=== PATIENT | female | born 1930 | race Caucasian/White ===

== ENCOUNTER 2016-11-04 18:04 | Emergency (ER) | payer MEDICARE, BC ==
[~2016-11-04 18:04] MED LIST: ACYCLOVIR200 MG PO; AMLODIPINE BES1 TAB PO; AMLODIPINE BESYL5 MG PO; ARTIFICIAL TEAR15 M1 OPH; ASPIRIN81 M1 PO; ATORVASTATIN CA10 M1 PO; CALCIUM CARBONA1 TA8 PO; COLACE100 MG PO; COLESTID1 GM PO; COREG25 MG PO; COUMADIN2 MG PO; COZAAR50 M1 PO; Coumadin2 MG PO; DEMADEX20 M1 PO; DOXYCYCLINE MO100 M1 PO; FERROUS SULFAT324 M1 PO; HUMALOG100 U/ML SC; IMDUR SA30 MG PO; JANUVIA25 MG PO; LIDODERM 5% PATC1 EA PO; LIDODERM 5% PATC1 EA T; MASOPHEN325 MG PO; MELATONIN3 MG PO; MOTION RELIEF25 M2 PO; NITRO-BID21 TP; NITRO-DUR1 EAC1 TD; OCUVITE1 TA1 PO; POTASSIUM CHLO10 ME5 PO; Synthroid,Lev100 MCG PO; TRAMADOL HCL50 MG PO; VITAMIN C500 M1 PO; VITAMIN D50000 I3 PO; WARFARIN SOD5 MG PO; WARFARIN SODIUM2 MG PO; XARE20MG PO; ZANTAC 150150 MG PO; ZOFRAN ODT4 MG SL
[2016-11-04 18:24] LABS: BASO % 0.2 % (0.0-1.0); HEMATOCRIT 32.7 % (37.0-47.0); HEMOGLOBIN 10.2 g/dl (12.0-16.0); LYMPH # 0.6 10*3/uL (1.3-4.4); LYMPH % 15.4 % (27.0-41.0); MEAN CELL VOLUME 92.9 fl (81.0-99.0); MEAN CORPUSCULAR HGB CONC 31.2 g/dl (33.0-37.0); MEAN PLATELET VOLUME 9.3 fl (9.6-12.3); MONO # 0.6 10*3/uL (0.1-1.0); MONO % 14.9 % (3.0-9.0); NEUT # 2.8 10*3/uL (2.3-7.9); NEUT % 68.3 % (47.0-73.0); PLATELET COUNT AUTOMATED 133 10*3/uL (130-400); RED BLOOD COUNT 3.52 10*6/uL (4.10-5.10); RED CELL DISTRI WIDTH 14.8 % (0-14.5); WHITE BLOOD COUNT 4.2 10*3/uL (4.8-10.8)
[2016-11-04] MEDS ORDERED: FOSAMAX70 M1 PO (18:27)
[2016-11-04] MEDS ORDERED: LOSARTAN POTASS50 M1 PO (18:28)
[2016-11-04] MEDS ORDERED: MILK OF MAGNESI1 TAB PO (18:29)
[2016-11-04 18:36] LABS: INTERNATIONAL NORM RATIO 1.8 (2.0-3.5); PROTHROMBIN TIME 19.9 SECONDS (9.0-12.4)
[2016-11-04 18:42] LABS: ALBUMIN 3.5 gm/dl (3.1-4.5); BILIRUBIN, TOTAL 0.4 mg/dl (0.2-1.0); POTASSIUM 4.5 mmol/L (3.5-5.1); TOTAL PROTEIN 7.5 gm/dL (6.4-8.2); TROPONIN I 0.016 ng/ml (<0.5)
[2016-11-04 19:26] LABS: BILIRUBIN NEGATIVE (NEGATIVE); BLOOD NEGATIVE (NEGATIVE); CLARITY SL CLOUDY (CLEAR); COLOR YELLOW (YELLOW); GLUCOSE TRACE (NEGATIVE); KETONE NEGATIVE (NEGATIVE); LEUKO ESTERASE 3+ (NEGATIVE); NITRITE NEGATIVE (NEGATIVE); PROTEIN NEGATIVE (NEGATIVE); SPECIFIC GRAVITY <= 1.005 (1.005-1.030); UROBILINOGEN 0.2 E.U./dl (0.2-1.0)
[2016-11-04 19:34] LABS: WBC 41-50 wbc/hpf (0-5)
[2016-11-04 19:35] LABS: BACTERIA TRACE; URINE REFLEX COMMENT YES (NO)
[2016-11-04] MEDS ORDERED: MACROBID100 M1 PO (19:44)
[2016-12-06] MEDS ORDERED: ACETAMINOPHEN325 M3 PO (15:40)
[2016-12-06] MEDS ORDERED: ACYCLOVIR200 MG PO (15:40)
[2016-12-06] MEDS ORDERED: NORVASC2.5 MG PO (15:41)
[2016-12-06] MEDS ORDERED: LIPITOR10 MG PO (15:42)
[2016-12-06] MEDS ORDERED: VITAMIN B121000 MC1 PO (15:43)
[2016-12-06] MEDS ORDERED: BIOFREEZE118 ML TP (15:44)
[2016-12-06] MEDS ORDERED: CALCIUM CARBONA1 TA8 PO (15:44)
[2016-12-06] MEDS ORDERED: COREG25 MG PO (15:45)
[2016-12-06] MEDS ORDERED: COLACE100 MG PO (15:45)
[2016-12-06] MEDS ORDERED: COLESTID1 GM PO (15:45)
[2016-12-06] MEDS ORDERED: VITAMIN D50000 I3 PO (15:46)
[2016-12-06] MEDS ORDERED: Coumadin2 MG PO (15:46)
[2016-12-06] MEDS ORDERED: FOSAMAX70 M1 PO (15:47)
[2016-12-06] MEDS ORDERED: HUMALOG100 U/ML SC (15:47)
[2016-12-06] MEDS ORDERED: IMDUR SA30 MG PO (15:48)
[2016-12-06] MEDS ORDERED: LANTUS100 U/ML SC (15:48)
[2016-12-06] MEDS ORDERED: COZAAR50 M1 PO (15:49)
[2016-12-06] MEDS ORDERED: LIDOCARE1 EACH TP (15:49)
[2016-12-06] MEDS ORDERED: MILK OF MA400 MG/5 M PO (15:56)
[2016-12-06] MEDS ORDERED: MELATONIN3 MG PO (15:56)
[2016-12-06] MEDS ORDERED: OCUVITE1 TA1 PO (15:57)
[2016-12-06] MEDS ORDERED: MINITRAN1 EACH TD (15:57)
[2016-12-06] MEDS ORDERED: KLOR-CON M1010 ME1 PO (15:57)
[2016-12-06] MEDS ORDERED: Synthroid,Lev100 MCG PO (15:58)
[2016-12-06] MEDS ORDERED: PREPARATION H 81 SUP R (15:58)
[2016-12-06] MEDS ORDERED: TORSEMIDE20 MG PO (15:59)
[2016-12-06] MEDS ORDERED: ZANTAC 150150 MG PO (15:59)
[2016-12-06] MEDS ORDERED: ULTRAM50 MG PO (15:59)
[2016-12-08] MEDS ORDERED: Zofran4 MG PO (15:21)
== END 2016-11-04 19:47 | disposition home or self-care (01) ==
LOC: ED 18:04
PROVIDERS: Nurse Practitioner Family
DX: R73.9 Hyperglycemia, unspecified (principal); N18.9 Chronic kidney disease, unspecified; N39.0 Urinary tract infection, site not specified; R03.0 Elevated blood-pressure reading, without diagnosis of hypertension; I99.8 Other disorder of circulatory system; E11.9 Type 2 diabetes mellitus without complications; M19.90 Unspecified osteoarthritis, unspecified site; E03.9 Hypothyroidism, unspecified; I48.91 Unspecified atrial fibrillation; Z88.0 Allergy status to penicillin; Z88.1 Allergy status to other antibiotic agents; Z79.82 Long term (current) use of aspirin; Z79.899 Other long term (current) drug therapy; Z85.71 Personal history of Hodgkin lymphoma; Z79.01 Long term (current) use of anticoagulants; Z79.4 Long term (current) use of insulin

== ENCOUNTER 2016-11-08 15:31 | Inpatient (IN) | payer MEDICARE, BC ==
[~2016-11-08] VITALS: Ht 152.4 cm; Wt 56.4 kg
--- NOTE | ~2016-11-08 | EKG ---
[place], [place] ELECTROCARDIOGRAM REPORT NAME: ANTONIO ESPINAL UNIT #: [id number] ROOM: [facility] DOCTOR: BLAYNE RIVERA,LAVERN BIRTHDATE: [birth year] DOS: 11/08/2016 TIME: 1549 hours. Underlying rhythm is atrial fibrillation with ventricular pacing at 60 beats per minute. No previous tracing is available for comparison. LAVERN CISNEROS MD CM:EKGRPT:ELECTROCARDIOGRAM REPORT 1857 LAVERN CISNEROS MD
--- NOTE | ~2016-11-08 | CON ---
[place], [place] REPORT OF CONSULTATION [id number] UNIT #: [id number] ROOM: 528 DOCTOR: AGATHA PINTO MD BIRTHDATE: [birth year] DOS: GASTROENDOSCOPIC REPORT HISTORY OF PRESENT ILLNESS: The patient is an 86-year-old was presented with multiple medical problems, among which has been guaiac positivity, prolonged INR secondary to Coumadin. CBC: H and H of 10 and 32. Comprehensive metabolic panel: BUN and creatinine elevation of 61 and 1.5. Electrolyte balance, liver function test normal. She has had colonoscopy, EGD several months ago done. She has had a UTI. Urine culture heavy gram-negative bacilli. Her INR was corrected to 2.7. CBC remains stable. PAST MEDICAL HISTORY: Associated with past cardiac dysrhythmia, anemia, diabetes mellitus, hypertension, congestive heart failure, hypothyroidism, hyperlipidemia, cardiac dysrhythmia. PAST SURGICAL HISTORY: Hysterectomy, pacemaker, appendectomy, cholecystectomy, right breast lumpectomy. SOCIAL HISTORY: Passive smoker. Nonalcohol consumer. FAMILY HISTORY: Noncontributory. MEDICATIONS: List was reviewed. She was on Coumadin. Coumadin on hold. She is on Protonix at the present time. REVIEW OF SYSTEMS: HEENT: Denies double vision or blurred vision. RESPIRATORY: Denies shortness of breath. CARDIOVASCULAR: Denies acute chest pain. DIGESTIVE SYSTEM: No hematemesis, no hematochezia. PHYSICAL EXAMINATION: VITAL SIGNS: Comfortable patient at the present time. HEENT: Head: Normocephalic, nontraumatic. Mouth and buccal mucosa benign. NECK: Supple, no thyromegaly. CHEST: Symmetric anatomy. No wheeze, no rhonchi. HEART: Normal sinus rhythm, no gallop, no murmur. ABDOMEN: Soft. No hepato-organomegaly. Bowel sounds present. EXTREMITIES: No cyanosis, no pedal edema. NEUROLOGIC: Alert, oriented to time, place and person. Family present in the room. IMPRESSION: Anemia, urinary tract infection, guaiac positivity, prolonged INR that has been reversed. PLAN AND DISCUSSION: H and H tomorrow morning, regular diet. The patient has refused any further workup. OTHER ADJUNCTIVE DIAGNOSIS: As outlined above in the past medical and surgical [place], [place] REPORT OF CONSULTATION NAME: ANTONIO ESPINAL UNIT #: [id number] ROOM: 528 DOCTOR: AGATHA PINTO MD BIRTHDATE: [birth year] history. AGATHA PINTO MD CM:CONSTR:REPORT OF CONSULTATION 1625 11/11/16 0208 interface
[2016-11-08 15:31] VITALS: BP 158/58
[~2016-11-08 15:31] MED LIST changes: +FOSAMAX70 M1 PO; +LOSARTAN POTASS50 M1 PO; +MACROBID100 M1 PO; +MILK OF MAGNESI1 TAB PO
[2016-11-08] MEDS ORDERED: B-12 COMPL1000 MCG/1 IM (15:59)
[2016-11-08 16:00] VITALS: BP 170/61
[2016-11-08] MEDS ORDERED: BIOFREEZE118 ML TP (16:06)
[2016-11-08] MEDS ORDERED: ISOSORBIDE30 MG PO (16:08)
[2016-11-08] MEDS ORDERED: LANTUS100 U/ML SC (16:11)
[2016-11-08 16:13] LABS: EOS # 0.1 10*3/uL (0.0-0.4); EOS % 2.2 % (1.0-4.0); HEMATOCRIT 32.6 % (37.0-47.0); LYMPH # 0.4 10*3/uL (1.3-4.4); LYMPH % 11.5 % (27.0-41.0); MEAN CELL VOLUME 93.4 fl (81.0-99.0); MEAN CORPUSCULAR HGB 28.7 pg (27.0-31.0); MEAN CORPUSCULAR HGB CONC 30.7 g/dl (33.0-37.0); MEAN PLATELET VOLUME 9.6 fl (9.6-12.3); MONO # 0.3 10*3/uL (0.1-1.0); MONO % 9.5 % (3.0-9.0); NEUT # 2.7 10*3/uL (2.3-7.9); NEUT % 76.5 % (47.0-73.0); PLATELET COUNT AUTOMATED 137 10*3/uL (130-400); RED BLOOD COUNT 3.49 10*6/uL (4.10-5.10); WHITE BLOOD COUNT 3.6 10*3/uL (4.8-10.8)
[2016-11-08] MEDS ORDERED: PREPARATION H 01 OIN T (16:14)
[2016-11-08] MEDS ORDERED: CEFTRIAXON1 GM/50 ML IM (16:15)
[2016-11-08 16:21] LABS: INTERNATIONAL NORM RATIO 4.2 (2.0-3.5)
[2016-11-08 16:28] LABS: ALBUMIN 3.3 gm/dl (3.1-4.5); BILIRUBIN, TOTAL 0.4 mg/dl (0.2-1.0); POTASSIUM 5.1 mmol/L (3.5-5.1); TOTAL PROTEIN 7.2 gm/dL (6.4-8.2); TROPONIN I 0.023 ng/ml (<0.5)
[2016-11-08 17:00] VITALS: BP 163/61
[2016-11-08 17:55] VITALS: BP 155/61
[2016-11-08 18:15] VITALS: BP 171/68
[2016-11-08 18:45] VITALS: BP 158/67
[2016-11-08] MEDS ORDERED: COUMADIN6 M2 PO (18:56)
[2016-11-08 19:52] LABS: HEMATOCRIT 29.6 % (37.0-47.0); HEMOGLOBIN 9.2 g/dl (12.0-16.0)
[2016-11-08 23:28] LABS: BILIRUBIN NEGATIVE (NEGATIVE); BLOOD NEGATIVE (NEGATIVE); CLARITY SL CLOUDY (CLEAR); COLOR YELLOW (YELLOW); GLUCOSE NEGATIVE (NEGATIVE); KETONE NEGATIVE (NEGATIVE); LEUKO ESTERASE 1+ (NEGATIVE); NITRITE NEGATIVE (NEGATIVE); PROTEIN NEGATIVE (NEGATIVE); SPECIFIC GRAVITY 1.015 (1.005-1.030); UROBILINOGEN 0.2 E.U./dl (0.2-1.0)
[2016-11-08 23:43] LABS: BACTERIA TRACE; URINE REFLEX COMMENT YES (NO); WBC 31-40 wbc/hpf (0-5)
[2016-11-09] VITALS (10 sets, daily range): BP systolic 139–182; BP diastolic 53–76
[2016-11-09 05:19] LABS: EOS # 0.1 10*3/uL (0.0-0.4); EOS % 2.3 % (1.0-4.0); HEMATOCRIT 29.9 % (37.0-47.0); LYMPH # 0.4 10*3/uL (1.3-4.4); LYMPH % 12.4 % (27.0-41.0); MEAN CORPUSCULAR HGB 28.3 pg (27.0-31.0); MEAN CORPUSCULAR HGB CONC 30.1 g/dl (33.0-37.0); MONO # 0.4 10*3/uL (0.1-1.0); MONO % 14.4 % (3.0-9.0); NEUT # 2.2 10*3/uL (2.3-7.9); NEUT % 70.2 % (47.0-73.0); PLATELET COUNT AUTOMATED 118 10*3/uL (130-400); RED BLOOD COUNT 3.18 10*6/uL (4.10-5.10); RED CELL DISTRI WIDTH 14.9 % (0-14.5); WHITE BLOOD COUNT 3.1 10*3/uL (4.8-10.8)
[2016-11-09 05:43] LABS: HEMOGLOBIN A1c 7.2 % (4.8-5.6)
[2016-11-09 05:54] LABS: ALBUMIN 3.1 gm/dl (3.1-4.5); ALKALINE PHOSPHATASE 56 U/L (45-117); BILIRUBIN, TOTAL 0.4 mg/dl (0.2-1.0); CARBON DIOXIDE 30 mmol/L (21-32); CHLORIDE 104 mmol/L (98-107); CHOLESTEROL 122 mg/dL (<200); EST GLOM FILT AFRICAN AMERICAN > 60 ml/min; FREE T4 1.42 ng/dl (0.76-1.46); HDL CHOLESTEROL 66 mg/dl (40-60); LDL CHOLESTEROL 48 mg/dL (9-159); MAGNESIUM 2.1 mg/dL (1.5-2.1); PHOSPHOROUS 3.6 mg/dL (2.5-4.9); SGOT/AST 43 IU/L (3-35); SGPT/ALT 37 U/L (12-78); SODIUM 144 mmol/L (136-145); TOTAL PROTEIN 6.7 gm/dL (6.4-8.2); TRIGLYCERIDES 40 mg/dl (<150); VLDL CHOLESTEROL 8 mg/dL (6-40)
[2016-11-09 05:55] LABS: BUN 37 mg/dl (7-24); POTASSIUM 3.8 mmol/L (3.5-5.1)
[2016-11-09 05:57] LABS: GLUCOSE 45 mg/dL (65-99)
[2016-11-09 06:17] LABS: INTERNATIONAL NORM RATIO 2.2 (2.0-3.5); PROTHROMBIN TIME 23.4 SECONDS (9.0-12.4)
[2016-11-09 06:41] LABS: FOLIC ACID 11.59 ng/mL (>5.38)
[2016-11-09 15:56] LABS: HEMATOCRIT 33.2 % (37.0-47.0); HEMOGLOBIN 10.3 g/dl (12.0-16.0)
[2016-11-10] VITALS (7 sets, daily range): BP systolic 130–186; BP diastolic 42–75
[2016-11-10 05:36] LABS: POTASSIUM 3.9 mmol/L (3.5-5.1)
[2016-11-10 05:49] LABS: EOS % 1.1 % (1.0-4.0); HEMATOCRIT 32.3 % (37.0-47.0); LYMPH # 0.3 10*3/uL (1.3-4.4); MEAN CELL VOLUME 93.1 fl (81.0-99.0); MEAN CORPUSCULAR HGB 28.8 pg (27.0-31.0); MEAN PLATELET VOLUME 9.8 fl (9.6-12.3); MONO # 0.5 10*3/uL (0.1-1.0); MONO % 13.6 % (3.0-9.0); NEUT # 2.9 10*3/uL (2.3-7.9); NEUT % 76.8 % (47.0-73.0); PLATELET COUNT AUTOMATED 116 10*3/uL (130-400); RED BLOOD COUNT 3.47 10*6/uL (4.10-5.10); RED CELL DISTRI WIDTH 14.9 % (0-14.5); WHITE BLOOD COUNT 3.8 10*3/uL (4.8-10.8)
[2016-11-10 06:31] LABS: INTERNATIONAL NORM RATIO 1.3 (2.0-3.5); PROTHROMBIN TIME 13.4 SECONDS (9.0-12.4)
[2016-11-11] VITALS: BP 162/62
[2016-11-11 04:00] VITALS: BP 105/50
[2016-11-11 05:46] LABS: BASO % 0.3 % (0.0-1.0); EOS % 0.8 % (1.0-4.0); HEMATOCRIT 32.2 % (37.0-47.0); HEMOGLOBIN 10.2 g/dl (12.0-16.0); LYMPH # 0.5 10*3/uL (1.3-4.4); LYMPH % 14.6 % (27.0-41.0); MEAN CELL VOLUME 91.7 fl (81.0-99.0); MEAN CORPUSCULAR HGB 29.1 pg (27.0-31.0); MEAN CORPUSCULAR HGB CONC 31.7 g/dl (33.0-37.0); MEAN PLATELET VOLUME 9.3 fl (9.6-12.3); MONO # 0.6 10*3/uL (0.1-1.0); MONO % 17.3 % (3.0-9.0); NEUT # 2.4 10*3/uL (2.3-7.9); NEUT % 66.7 % (47.0-73.0); PLATELET COUNT AUTOMATED 119 10*3/uL (130-400); RED BLOOD COUNT 3.51 10*6/uL (4.10-5.10); RED CELL DISTRI WIDTH 14.7 % (0-14.5); WHITE BLOOD COUNT 3.6 10*3/uL (4.8-10.8)
[2016-11-11 05:57] LABS: POTASSIUM 4.1 mmol/L (3.5-5.1)
[2016-11-11 06:06] LABS: INTERNATIONAL NORM RATIO 1.2 (2.0-3.5); PROTHROMBIN TIME 12.5 SECONDS (9.0-12.4)
[2016-11-11 08:00] VITALS: BP 176/60
[2016-11-11 09:26] VITALS: BP 138/60
[2016-11-11 12:00] VITALS: BP 170/66
[2016-11-11] MEDS ORDERED: LEVEMIR10 ML SC (13:19)
[2016-11-11] MEDS ORDERED: COUMADIN5 M2 PO (14:13)
[2016-12-06] MEDS ORDERED: ACYCLOVIR200 MG PO (15:40)
[2016-12-06] MEDS ORDERED: ACETAMINOPHEN325 M3 PO (15:40)
[2016-12-06] MEDS ORDERED: NORVASC2.5 MG PO (15:41)
[2016-12-06] MEDS ORDERED: LIPITOR10 MG PO (15:42)
[2016-12-06] MEDS ORDERED: VITAMIN B121000 MC1 PO (15:43)
[2016-12-06] MEDS ORDERED: CALCIUM CARBONA1 TA8 PO (15:44)
[2016-12-06] MEDS ORDERED: BIOFREEZE118 ML TP (15:44)
[2016-12-06] MEDS ORDERED: COLESTID1 GM PO (15:45)
[2016-12-06] MEDS ORDERED: COREG25 MG PO (15:45)
[2016-12-06] MEDS ORDERED: COLACE100 MG PO (15:45)
[2016-12-06] MEDS ORDERED: VITAMIN D50000 I3 PO (15:46)
[2016-12-06] MEDS ORDERED: Coumadin2 MG PO (15:46)
[2016-12-06] MEDS ORDERED: HUMALOG100 U/ML SC (15:47)
[2016-12-06] MEDS ORDERED: FOSAMAX70 M1 PO (15:47)
[2016-12-06] MEDS ORDERED: IMDUR SA30 MG PO (15:48)
[2016-12-06] MEDS ORDERED: LANTUS100 U/ML SC (15:48)
[2016-12-06] MEDS ORDERED: LIDOCARE1 EACH TP (15:49)
[2016-12-06] MEDS ORDERED: COZAAR50 M1 PO (15:49)
[2016-12-06] MEDS ORDERED: MELATONIN3 MG PO (15:56)
[2016-12-06] MEDS ORDERED: MILK OF MA400 MG/5 M PO (15:56)
[2016-12-06] MEDS ORDERED: KLOR-CON M1010 ME1 PO (15:57)
[2016-12-06] MEDS ORDERED: OCUVITE1 TA1 PO (15:57)
[2016-12-06] MEDS ORDERED: MINITRAN1 EACH TD (15:57)
[2016-12-06] MEDS ORDERED: Synthroid,Lev100 MCG PO (15:58)
[2016-12-06] MEDS ORDERED: PREPARATION H 81 SUP R (15:58)
[2016-12-06] MEDS ORDERED: ULTRAM50 MG PO (15:59)
[2016-12-06] MEDS ORDERED: TORSEMIDE20 MG PO (15:59)
[2016-12-06] MEDS ORDERED: ZANTAC 150150 MG PO (15:59)
[2016-12-08] MEDS ORDERED: Zofran4 MG PO (15:21)
== END 2016-11-11 16:00 | disposition other institution (70) | DRG 377 ==
LOC: ED 15:31 → ICCU 16:24 → EDHOLD 16:24 → 5E 16:24 → ICCU 17:50 → 5E 11-10 17:05
PROVIDERS: Family Medicine; Hospitalist; Internal Medicine; Internal Medicine Gastroenterology; Nurse Practitioner Family
DX: K92.2 Gastrointestinal hemorrhage, unspecified (principal); N17.0 Acute kidney failure with tubular necrosis; D62 Acute posthemorrhagic anemia; C85.90 Non-Hodgkin lymphoma, unspecified, unspecified site; I13.0 Hypertensive heart and chronic kidney disease with heart failure and stage 1 through stage 4 chronic kidney disease, or unspecified chronic kidney disease; R79.1 Abnormal coagulation profile; E11.65 Type 2 diabetes mellitus with hyperglycemia; D72.819 Decreased white blood cell count, unspecified; M19.90 Unspecified osteoarthritis, unspecified site; E03.9 Hypothyroidism, unspecified; I70.90 Unspecified atherosclerosis; I50.9 Heart failure, unspecified; N18.9 Chronic kidney disease, unspecified; E11.22 Type 2 diabetes mellitus with diabetic chronic kidney disease; I48.91 Unspecified atrial fibrillation; R19.5 Other fecal abnormalities; Z66 Do not resuscitate; E78.5 Hyperlipidemia, unspecified; Z87.440 Personal history of urinary (tract) infections; Z90.49 Acquired absence of other specified parts of digestive tract; Z90.710 Acquired absence of both cervix and uterus; Z95.1 Presence of aortocoronary bypass graft; Z87.891 Personal history of nicotine dependence; Z80.1 Family history of malignant neoplasm of trachea, bronchus and lung; Z80.8 Family history of malignant neoplasm of other organs or systems; Z88.0 Allergy status to penicillin; Z88.1 Allergy status to other antibiotic agents; Z88.2 Allergy status to sulfonamides; Z91.048 Other nonmedicinal substance allergy status; Z79.82 Long term (current) use of aspirin; Z79.4 Long term (current) use of insulin; Z79.899 Other long term (current) drug therapy; Z79.01 Long term (current) use of anticoagulants

== ENCOUNTER 2017-01-16 17:19 | Inpatient (IN) | payer MEDICARE, BC ==
[~2017-01-16] VITALS: Ht 152.4 cm; Wt 54.6 kg
--- NOTE | ~2017-01-16 | CON ---
[place], [place] REPORT OF CONSULTATION NAME: ANTONIO ESPINAL UNIT #: [id number] ROOM: 511 DOCTOR: DEVYN BONILLA MD BIRTHDATE: [birth year] DOS: 01/18/2017 ADMITTING PHYSICIAN: Ambrosio Walker DO CHIEF COMPLAINT: Hearing loss. HISTORY OF PRESENT ILLNESS: The patient is an 87-year-old female who is a resident at [facility]. She was recently admitted to [facility] 2 days ago with fever and mental status changes. The patient has a diagnosis of presumed urosepsis. Confusion was most likely related to metabolic encephalopathy, she has developed significant hearing loss bilaterally. She states that she does have hearing aid, but has not been wearing it. Her hearing has deteriorated. She denies ear pain. DESCRIPTION OF PROCEDURE: The patient communicates currently via clipboard. PAST MEDICAL HISTORY: Includes, atrial fibrillation, congestive heart failure, chronic kidney disease, diabetes, hypercholesterolemia, hypercoagulable state, hypothyroidism, mitral regurgitation, non-Hodgkin lymphoma, osteoarthritis, pulmonary hypertension, spinal stenosis, bilateral sensorineural hearing loss. PAST SURGICAL HISTORY: Includes herniated cervical disk, appendectomy, cholecystectomy, right breast lumpectomy, partial hysterectomy, defibrillator placement and coronary artery bypass surgery. CURRENT MEDICATIONS: Include potassium, Imdur, Pepcid, Norvasc, insulin, Synthroid, Cozaar, Coreg, Zovirax, tramadol, Solu-Medrol, cefepime, Coumadin. ALLERGIES: PENICILLIN AND SULFA. PHYSICAL EXAMINATION: GENERAL: The patient was examined at the bedside where she appears alert and oriented. HEENT: Ear exam shows external canals clear. No obstructing cerumen and the TMs are intact. The TMs are slightly retracted. The nose shows no mucopurulence, oral cavity and oropharynx clear. NECK: Supple. IMPRESSION: Profound sensorineural hearing loss. RECOMMENDATIONS: Follow up with ENT after discharge for audiometric testing. The patient will most likely require amplification and her hearing aid will need to be checked during that visit. [place], [place] REPORT OF CONSULTATION NAME: GENA ESPINALMASTER Resendez UNIT #: [id number] ROOM: 511 DOCTOR: DEVYN BONILLA MD BIRTHDATE: [birth year] DEVYN BONILLA MD CM:CONSTR:REPORT OF CONSULTATION 0841 01/18/17 1003 interface
[2017-01-16 17:19] VITALS: BP 112/44
[~2017-01-16 17:19] MED LIST changes: +ACETAMINOPHEN325 M3 PO; +B-12 COMPL1000 MCG/1 IM; +BIOFREEZE118 ML TP; +CEFTRIAXON1 GM/50 ML IM; +COUMADIN5 M2 PO; +COUMADIN6 M2 PO; +ISOSORBIDE30 MG PO; +KLOR-CON M1010 ME1 PO; +LANTUS100 U/ML SC; +LEVEMIR10 ML SC; +LIDOCARE1 EACH TP; +LIPITOR10 MG PO; +MILK OF MA400 MG/5 M PO; +MINITRAN1 EACH TD; +NORVASC2.5 MG PO; +PREPARATION H 01 OIN T; +PREPARATION H 81 SUP R; +TORSEMIDE20 MG PO; +ULTRAM50 MG PO; +VITAMIN B121000 MC1 SC; +Zofran4 MG PO
[2017-01-16 18:26] LABS: EOS # 0.2 10*3/uL (0.0-0.4); EOS % 3.6 % (1.0-4.0); HEMATOCRIT 30.4 % (37.0-47.0); HEMOGLOBIN 9.5 g/dl (12.0-16.0); LYMPH # 0.3 10*3/uL (1.3-4.4); LYMPH % 6.5 % (27.0-41.0); MEAN CELL VOLUME 88.1 fl (81.0-99.0); MEAN CORPUSCULAR HGB 27.5 pg (27.0-31.0); MEAN CORPUSCULAR HGB CONC 31.3 g/dl (33.0-37.0); MEAN PLATELET VOLUME 9.3 fl (9.6-12.3); MONO # 0.6 10*3/uL (0.1-1.0); MONO % 12.4 % (3.0-9.0); NEUT # 3.4 10*3/uL (2.3-7.9); NEUT % 77.1 % (47.0-73.0); PLATELET COUNT AUTOMATED 150 10*3/uL (130-400); RED BLOOD COUNT 3.45 10*6/uL (4.10-5.10); RED CELL DISTRI WIDTH 17.1 % (0-14.5); WHITE BLOOD COUNT 4.5 10*3/uL (4.8-10.8)
[2017-01-16 18:35] LABS: INTERNATIONAL NORM RATIO 1.5 (2.0-3.5); PROTHROMBIN TIME 16.4 SECONDS (9.0-12.4)
[2017-01-16] MEDS ORDERED: ZOFRAN4 MG PO (18:35)
[2017-01-16 18:37] VITALS: BP 114/46
[2017-01-16 18:43] LABS: ALBUMIN 2.5 gm/dl (3.1-4.5); BILIRUBIN, TOTAL 0.5 mg/dl (0.2-1.0); MAGNESIUM 2.1 mg/dL (1.5-2.1); TOTAL PROTEIN 6.4 gm/dL (6.4-8.2)
[2017-01-16 18:46] LABS: CKMB 1.1 ng/ml (0.5-3.6)
[2017-01-16 18:49] LABS: TROPONIN I 0.073 ng/ml (<0.045)
[2017-01-16 19:00] LABS: BILIRUBIN NEGATIVE (NEGATIVE); BLOOD NEGATIVE (NEGATIVE); CLARITY CLOUDY (CLEAR); COLOR YELLOW (YELLOW); GLUCOSE 1+ (NEGATIVE); KETONE TRACE (NEGATIVE); LEUKO ESTERASE 2+ (NEGATIVE); NITRITE NEGATIVE (NEGATIVE); PROTEIN TRACE (NEGATIVE); UROBILINOGEN 0.2 E.U./dl (0.2-1.0)
[2017-01-16 19:07] LABS: BACTERIA 2+; EPITHELIAL CELLS 25-30; URINE REFLEX COMMENT YES (NO); WBC 21-30 wbc/hpf (0-5)
[2017-01-16 19:51] VITALS: BP 170/65
[2017-01-16 20:20] VITALS: BP 190/65
[2017-01-16 21:15] VITALS: BP 175/60
[2017-01-17] VITALS: BP 152/73
[2017-01-17] MEDS ORDERED: BIOFREEZE118 ML T (00:06)
[2017-01-17] MEDS ORDERED: DUONEB 3 MG/3 ML3 M1 INH (00:08)
[2017-01-17] MEDS ORDERED: NATURE'S TEARS15 M2 OU (00:09)
[2017-01-17 06:34] LABS: BASO % 0.1 % (0.0-1.0); EOS # 0.2 10*3/uL (0.0-0.4); EOS % 2.7 % (1.0-4.0); HEMATOCRIT 33.1 % (37.0-47.0); HEMOGLOBIN 10.3 g/dl (12.0-16.0); LYMPH # 0.2 10*3/uL (1.3-4.4); LYMPH % 3.2 % (27.0-41.0); MEAN CELL VOLUME 87.6 fl (81.0-99.0); MEAN CORPUSCULAR HGB 27.2 pg (27.0-31.0); MEAN CORPUSCULAR HGB CONC 31.1 g/dl (33.0-37.0); MEAN PLATELET VOLUME 9.3 fl (9.6-12.3); MONO # 0.7 10*3/uL (0.1-1.0); MONO % 9.3 % (3.0-9.0); NEUT % 84.3 % (47.0-73.0); PLATELET COUNT AUTOMATED 171 10*3/uL (130-400); RED BLOOD COUNT 3.78 10*6/uL (4.10-5.10); WHITE BLOOD COUNT 7.1 10*3/uL (4.8-10.8)
[2017-01-17 07:07] LABS: BUN 33 mg/dl (7-24); CARBON DIOXIDE 30 mmol/L (21-32); CHLORIDE 103 mmol/L (98-107); EST GLOM FILT AFRICAN AMERICAN > 60 ml/min; GLUCOSE 119 mg/dL (65-99); MAGNESIUM 1.9 mg/dL (1.5-2.1); PHOSPHOROUS 3.3 mg/dL (2.5-4.9); POTASSIUM 4.2 mmol/L (3.5-5.1); SODIUM 140 mmol/L (136-145)
[2017-01-17 07:41] LABS: VITAMIN D, 25-HYDROXY 41.5 ng/mL (30-100)
[2017-01-17 07:42] LABS: FOLIC ACID 22.55 ng/mL (>5.38)
[2017-01-17 08:00] VITALS: BP 105/43
[2017-01-17 12:00] VITALS: BP 108/40
[2017-01-17 16:00] VITALS: BP 126/42
[2017-01-17 20:00] VITALS: BP 155/47
[2017-01-18] VITALS: BP 132/48
[2017-01-18 05:57] LABS: EOS # 0.3 10*3/uL (0.0-0.4); EOS % 7.1 % (1.0-4.0); HEMATOCRIT 29.8 % (37.0-47.0); HEMOGLOBIN 9.2 g/dl (12.0-16.0); LYMPH # 0.4 10*3/uL (1.3-4.4); LYMPH % 11.3 % (27.0-41.0); MEAN CELL VOLUME 87.9 fl (81.0-99.0); MEAN CORPUSCULAR HGB 27.1 pg (27.0-31.0); MEAN CORPUSCULAR HGB CONC 30.9 g/dl (33.0-37.0); MEAN PLATELET VOLUME 9.3 fl (9.6-12.3); MONO # 0.5 10*3/uL (0.1-1.0); MONO % 12.1 % (3.0-9.0); NEUT # 2.6 10*3/uL (2.3-7.9); NEUT % 68.7 % (47.0-73.0); PLATELET COUNT AUTOMATED 144 10*3/uL (130-400); RED BLOOD COUNT 3.39 10*6/uL (4.10-5.10); RED CELL DISTRI WIDTH 17.4 % (0-14.5); WHITE BLOOD COUNT 3.8 10*3/uL (4.8-10.8)
[2017-01-18 08:00] VITALS: BP 102/46
[2017-01-18 12:00] VITALS: BP 118/43
[2017-01-18 16:00] VITALS: BP 122/46
[2017-01-18 20:00] VITALS: BP 110/82
[2017-01-19] VITALS: BP 149/55
[2017-01-19 06:56] LABS: EOS # 0.3 10*3/uL (0.0-0.4); EOS % 7.8 % (1.0-4.0); HEMATOCRIT 29.6 % (37.0-47.0); HEMOGLOBIN 8.9 g/dl (12.0-16.0); LYMPH # 0.4 10*3/uL (1.3-4.4); MEAN CELL VOLUME 88.6 fl (81.0-99.0); MEAN CORPUSCULAR HGB 26.6 pg (27.0-31.0); MEAN CORPUSCULAR HGB CONC 30.1 g/dl (33.0-37.0); MEAN PLATELET VOLUME 9.6 fl (9.6-12.3); MONO # 0.4 10*3/uL (0.1-1.0); MONO % 11.9 % (3.0-9.0); NEUT # 2.4 10*3/uL (2.3-7.9); NEUT % 68.7 % (47.0-73.0); PLATELET COUNT AUTOMATED 148 10*3/uL (130-400); RED BLOOD COUNT 3.34 10*6/uL (4.10-5.10); RED CELL DISTRI WIDTH 17.1 % (0-14.5); WHITE BLOOD COUNT 3.4 10*3/uL (4.8-10.8)
[2017-01-19 07:22] LABS: POTASSIUM 4.4 mmol/L (3.5-5.1)
[2017-01-19 07:25] LABS: INTERNATIONAL NORM RATIO 1.7 (2.0-3.5); PROTHROMBIN TIME 18.8 SECONDS (9.0-12.4)
[2017-01-19 08:00] VITALS: BP 130/44
[2017-01-19] MEDS ORDERED: BACTROBAN OINT0.9 GM NAS (11:47)
[2017-01-19 12:00] VITALS: BP 181/56
== END 2017-01-19 14:25 | disposition other institution (70) | DRG 871 ==
LOC: ED 17:19 → EDHOLD 19:51 → 5E 19:51
PROVIDERS: Internal Medicine; Physician Assistant; Student in an Organized Health Care Education/Training Program
DX: A41.9 Sepsis, unspecified organism (principal); G93.41 Metabolic encephalopathy; E43 Unspecified severe protein-calorie malnutrition; I50.33 Acute on chronic diastolic (congestive) heart failure; T68.XXXA Hypothermia, initial encounter; J18.9 Pneumonia, unspecified organism; D68.59 Other primary thrombophilia; I13.0 Hypertensive heart and chronic kidney disease with heart failure and stage 1 through stage 4 chronic kidney disease, or unspecified chronic kidney disease; E11.22 Type 2 diabetes mellitus with diabetic chronic kidney disease; N39.0 Urinary tract infection, site not specified; R65.20 Severe sepsis without septic shock; D64.9 Anemia, unspecified; E03.9 Hypothyroidism, unspecified; E11.65 Type 2 diabetes mellitus with hyperglycemia; M15.9 Polyosteoarthritis, unspecified; I48.0 Paroxysmal atrial fibrillation; N18.3 Chronic kidney disease, stage 3 (moderate); E55.9 Vitamin D deficiency, unspecified; I27.2 Other secondary pulmonary hypertension; E78.00 Pure hypercholesterolemia, unspecified; B95.2 Enterococcus as the cause of diseases classified elsewhere; Z90.49 Acquired absence of other specified parts of digestive tract; Z90.710 Acquired absence of both cervix and uterus; Z95.1 Presence of aortocoronary bypass graft; Z79.01 Long term (current) use of anticoagulants; Z87.891 Personal history of nicotine dependence; Z80.0 Family history of malignant neoplasm of digestive organs; Z80.8 Family history of malignant neoplasm of other organs or systems; Z88.2 Allergy status to sulfonamides; Z88.0 Allergy status to penicillin; Z88.1 Allergy status to other antibiotic agents; Z91.048 Other nonmedicinal substance allergy status; Z79.1 Long term (current) use of non-steroidal anti-inflammatories (NSAID); Z79.4 Long term (current) use of insulin; Z79.899 Other long term (current) drug therapy; Z68.23 Body mass index [BMI] 23.0-23.9, adult

== ENCOUNTER 2017-01-24 07:59 | Inpatient (IN) | payer MEDICARE, BC ==
[~2017-01-24] VITALS: Ht 152.4 cm; Wt 53.1 kg
--- NOTE | ~2017-01-24 | PR ---
[place], [place] PROGRESS NOTE NAME: ANTONIO ESPINAL UNIT #: [id number] ROOM: 519 DOCTOR: DANISHA MERCER MD BIRTHDATE: [birth year] DOS: 01/25/2017 REASON FOR FOLLOWUP: Positive blood culture with Strep viridans. CHIEF COMPLAINT: Shortness of breath. SUBJECTIVE: The patient is feeling better, sleeping well. No fever, chills, nausea, vomiting. REVIEW OF SYSTEMS: A 10 review of systems was otherwise negative unless otherwise specified in the HPI. Blood cultures still remain negative from yesterday. PHYSICAL EXAMINATION: VITAL SIGNS: Showed temperature of 97.1, heart rate of 60, blood pressure 92/50, respiratory rate of 16, and pulse ox of 100% room air. GENERAL APPEARANCE: Awake, alert, and oriented to time, place and person. No acute distress. HEENT: Oral cavity moist. NECK: Supple, no JVD, no lymphadenopathy. HEART: Regular rate and rhythm. S1, S2 normal. No murmurs, gallops or rubs. LUNGS: Clear to auscultation. Equal air entry bilaterally. ABDOMEN: Soft, nontender, nondistended. Bowel sounds heard. EXTREMITIES: Warm to touch. Pulses palpated bilaterally. LABORATORY DATA: Reviewed. Hemoglobin of 10.2, WBC of 5.9, sed rate 78, platelets 274. BUN 32, creatinine 0.81. She had blood glucose of 25 earlier today, which is resolved. MEDICATIONS: Currently includes IV cefepime 2 g q.12. ASSESSMENT AND PLAN: 1. Surveillance bacteremia with in situ ICD rule out ICD device related endocarditis, we will recommend DIOGENES. If negative place a PICC line. Plan for 2 weeks of IV antibiotics with IV cefepime 2 g q.12. Monitor BUN and creatinine and CBC with differential. If DIOGENES is positive we will make further recommendations after that. 2. Neutropenia from non-Hodgkin's lymphoma, resolved. We will continue to follow. [place], [place] PROGRESS NOTE NAME: ANTONIO ESPINAL UNIT #: [id number] ROOM: 519 DOCTOR: DANISHA MERCER MD BIRTHDATE: [birth year] DANISHA MERCER MD CM:SISSY 1653 [id number] DANISHA MERCER MD 01/26/17 1444 interface
--- NOTE | ~2017-01-24 | EKG ---
[place], [place] ELECTROCARDIOGRAM REPORT NAME: ANTONIO ESPINAL UNIT #: [id number] ROOM: [facility] DOCTOR: RADHA VAUGHN MD BIRTHDATE: [birth year] DOS: 01/26/2017 STUDY DONE: 01/26/2017 at 07:49 a.m. The patient is in a ventricular paced rhythm at rate of 61 beats per minutes. This may be a biventricular pacer as determined by the appearance of the pacer artifact. The underlying rhythm appears to be atrial fibrillation, and the patient's ventricle is 100% paced. Abnormal electrocardiogram. RADHA VAUGHN MD CM:EKGRPT:ELECTROCARDIOGRAM REPORT 1101 1559 RADHA VAUGHN MD
--- NOTE | ~2017-01-24 | CON ---
[place], [place] REPORT OF CONSULTATION NAME: ANTONIO ESPINAL UNIT #: [id number] ROOM: 519 DOCTOR: DANISHA MERCER MD BIRTHDATE: [birth year] DOS: 01/24/2017 REASON FOR CONSULT: Bacteremia. CONSULTING DOCTOR: Dr. Rakan Joya. HISTORY OF PRESENTING ILLNESS: This is an 87-year-old woman who is a custodial resident who was asked to come to the hospital after her blood culture from previous hospitalization from to 01/19 was found to be positive for Streptococcus salivarius. The previous admission was for possible UTI with respiratory distress as well. She is almost deaf with severe bilateral hearing loss, which had been recent and had been on steroids for the same. Currently, she does not have any fever, chills, nausea, vomiting, headache, diarrhea or any urinary complaints. She reported some fatigue and her appetite had been poor. She had episodes of vomiting when taking pills at the custodial. PAST MEDICAL HISTORY: Positive for history of AFib, CHF, CKD, diabetes, hypercholesterolemia, hypothyroidism, mitral regurg, non-Hodgkin's lymphoma, normocytic anemia, osteoarthritis, pulmonary hypertension, pulmonary regurgitation, bilateral sensorineural hearing loss, malnutrition, spinal stenosis, tricuspid regurg. PAST SURGICAL HISTORY: Herniated cervical disk, appendectomy, cholecystectomy, lumpectomy, right breast, hysterectomy, ICD placement, CABG x 2. SOCIAL HISTORY: She is a custodial resident at [facility]. Does not use alcohol or illicit drugs. Past history of smoking, quit when she was 48. She has about 5-year pack per day smoking history. FAMILY HISTORY: Father had lung and liver cancer, . Mother from throat cancer. ALLERGIES: Reviewed TAPE and CIPROFLOXACIN CAUSES HIVES, PENICILLIN CAUSES HIVES, SULFA CAUSES HIVES. HOME MEDICATIONS AND CURRENT INPATIENT MEDICATIONS: Reviewed. She is on acyclovir 200 mg p.o. twice daily for some reason and also had been recently started on steroids by her doctor, also had Macrobid on board for possible UTI. Other medications and current inpatient medications reviewed. REVIEW OF SYSTEMS: A 14-review of systems otherwise negative unless otherwise specified in the HPI. PHYSICAL EXAMINATION: VITAL SIGNS: Showed a temperature of 97.2, heart rate of 62, blood pressure of 104/40, respiratory rate of 18, pulse ox of 100% on 3 liters of oxygen through the nasal cannula. GENERAL APPEARANCE: Awake, alert, oriented, hard of hearing. Communication through writing, follows commands well. [place], [place] REPORT OF CONSULTATION NAME: ANTONIO ESPINAL UNIT #: [id number] ROOM: [facility] DOCTOR: DANISHA MERCER MD BIRTHDATE: [birth year] ORAL CAVITY: Moist, intact artificial dentures. NECK: Supple, no JVD, no lymphadenopathy. HEART: Regular rate and rhythm. S1, S2 normal. No murmurs, gallops or rubs appreciated. ABDOMEN: Soft, nontender, no distention. Bowel sounds heard. LUNGS: Clear to auscultation. Equal air entry bilaterally. EXTREMITIES: Bilateral lower extremity, no edema. SKIN: Scattered bruising noted. Left shoulder pain. Severe osteoarthritis of bilateral knees without any cellulitis or knee swelling. LABORATORY DATA: Reviewed. WBC of 3.3, hemoglobin 8.9, and platelets of 222. Chemistry showing BUN 34, creatinine 1.21. Urinalysis showing no pyuria or bacteriuria with trace bacteria. MICROBIOLOGY: Blood culture from January 16, one set positive Strep salivarius in aerobic and anaerobic cultures. Repeat blood cultures from today are pending. Chest x-ray from January 16, showing no focal infiltrates. She had abdomen and pelvis CAT scan on January 16 revealing no acute process. This was without contrast. She was positive for occult blood at that time. ASSESSMENT AND PLAN: 1. Streptococcus viridans bacteremia with Streptococcus salivarius. It is a normal commensal of the oral cavity and upper respiratory tract. Her recent admission was for shortness of breath and UTI like symptoms. She also has non-Hodgkin's lymphoma and is neutropenic from that. I would stop her IV vancomycin and switch her to cefepime 1 g q.12 or cefotaxime 1 g q.12 and wait for repeat blood cultures. If repeat blood cultures are negative, I would recommend switching her to p.o. Levaquin, if susceptible for discharge planning. If it is positive, I would recommend getting a DIOGENES to make sure she does not have viridans endocarditis, although my suspicion remains low, but she has an ICD device with history of infection of the device in 2013, which was treated at [facility] in [place]. If the repeat blood cultures are positive or if she has high sed rate with ICD in situ, she would meet a soft criteria for possible ICD related endocarditis. If the family is agreeable for DIOGENES, I would get the DIOGENES. If not, would empirically treat her with antibiotics for 6 weeks. We will see her again tomorrow and decide about appropriate treatment. Switch IV vancomycin to IV cefotaxime or cefepime now and follow up blood cultures. Obtain sed rate for tomorrow morning. Thank you, Dr. Rakan Joya, for this consult. I will continue to follow. [place], [place] REPORT OF CONSULTATION NAME: ANTONIO ESPINAL UNIT #: [id number] ROOM: [facility] DOCTOR: DANISHA MERCER MD BIRTHDATE: [birth year] DANISHA MERCER MD CM:CONSTR:REPORT OF CONSULTATION 1650 01/25/17 0439 interface
--- NOTE | ~2017-01-24 | CON ---
[place], [place] REPORT OF CONSULTATION NAME: ANTONIO ESPINAL [facility] #: [id number] UNIT #: [id number] ROOM: 519 DOCTOR: RADHA VAUGHN MD BIRTHDATE: [birth year] DOS: 01/25/2017 REASON FOR CONSULTATION: Positive blood culture, consideration of transesophageal echocardiogram. 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 She is typically followed by a phd internship in [place], [place], and much of the history was obtained from her daughter. She has had an ICD in place for over 14 years. The chest x-ray indicates that this is a biventricular device. The patient's daughter informs me that the first ICD was infected shortly after its implant. It had to be explanted, but the wires were maintained. According to the daughter, she did undergo an AV sean ablation and she does have chronic atrial fibrillation as well. The patient has had recurrent urinary tract infections. She was hospitalized at the [facility] from January 16 through the . A blood culture obtained during that admission was positive for Streptococcus salivarius. The blood culture became positive after her discharge and she was asked to come back to the hospital for further evaluation. According to the records and her daughter, she has been fatigued, but has not had any fevers, chills, nausea, vomiting, diarrhea, or urinary complaints. Her appetite has been poor. On this admission, thus far, her blood cultures are negative. We were asked to do a transesophageal echocardiogram to determine if there were any signs of endocarditis. Over the last year, the patient has developed severe hearing loss. The etiology of this is not clear. She is very difficult to communicate with because of this. As I tried to explain to the patient the possible consequences of a cardiac or pacemaker infection, she reiterated to be several times that she just did not want surgery. PAST MEDICAL HISTORY: Includes: 1. Coronary artery disease, status post bypass on 2 occasions. The first was at age 48. 2. History of atrial fibrillation. 3. Status post AV sean ablation and placement of an ICD. 4. Initial ICD became infected shortly after its implant. The device had to be explanted and replaced; however, her leads were allowed to remain in place and apparently were sterilized. This occurred about 14 years ago. 5. Multiple generator changes since initial implant. Her current device is a biventricular resynchronization device. 6. History of congestive heart failure. 7. History of chronic renal insufficiency. 8. Type 2 diabetes mellitus, on insulin. 9. Hyperlipidemia. 10. Hypothyroidism. 11. History of non-Hodgkin's lymphoma. According to the daughter, this was [place], [place] REPORT OF CONSULTATION NAME: ANTONIO ESPINAL UNIT #: [id number] ROOM: [facility] DOCTOR: RADHA VAUGHN MD BIRTHDATE: [birth year] diagnosed sometime ago. It is a low grade tumor and has never required chemotherapy or radiation. 12. History of pulmonary hypertension. 13. History of cervical disk disease. 14. Status post appendectomy, cholecystectomy, lumpectomy from her right breast, partial hysterectomy. MEDICATIONS: At the time of admission, DuoNeb by nebulizer p.r.n. wheezing, artificial tears b.i.d., acetaminophen p.r.n., acyclovir 200 mg b.i.d., alendronate 70 mg weekly, amlodipine 2.5 mg daily, atorvastatin 10 mg daily, calcium carbonate with vitamin D and minerals daily, carvedilol 25 mg b.i.d., Colestid 2 g b.i.d., docusate 100 mg b.i.d., vitamin D2 50,000 units every 2 weeks, isosorbide mononitrate 30 mg daily, levothyroxine 100 mcg daily, losartan 50 mg b.i.d., nitrofurantoin 100 mg daily, Ocuvite daily, Zofran 4 mg q. 8 hours p.r.n. nausea, potassium 10 mEq daily, ranitidine 150 mg daily, torsemide 20 mg daily, Ultram 50 mg q. 4 hours p.r.n., warfarin 3 mg daily to maintain an INR between 2 and 3, Preparation H p.r.n. hemorrhoidal pain, B12 1000 mcg subcutaneously every 2 weeks, Lantus insulin 20 units subcutaneously at bedtime, Humalog insulin by sliding scale, Bactroban ointment to the nares b.i.d., lidocaine cream q. 24 hours p.r.n., Biofreeze gel to the knees twice a day, and menthol with zinc oxide applied to the buttocks q. 12 hours. ALLERGIES: THE PATIENT LISTS ALLERGIES TO TAPE, CIPROFLOXACIN, PENICILLIN, AND SULFA. REVIEW OF SYSTEMS: The patient denies diplopia. She is extremely hard of hearing. She denies lightheadedness or syncope. She denies fevers or chills. She has had poor appetite. It is not clear if she has had weight loss. She has had occasional nausea and vomiting. She denies focal weakness. She denies fevers, chills, sweats. She denies any change in bowel or bladder habits. She denies bleeding from her bowels or urine. She denies any abdominal distention. She denies any peripheral edema. She denies heat or cold intolerance. Remainder of the review of systems per her daughter is negative except as noted above. FAMILY HISTORY: The patient has not had any family history of early coronary disease. SOCIAL HISTORY: The patient resides in a residential. She does not smoke or drink at this time. PHYSICAL EXAMINATION: GENERAL: The patient is an elderly white female who is awake and alert. She is extremely hard of hearing. VITAL SIGNS: Pulse is 60 and regular, presumably she is in a paced rhythm, but her EKG is pending. Blood pressure is 92/50. She is afebrile. She weighs 53.1 kg and has a body mass index of 22.9. HEENT: Normocephalic and atraumatic. Extraocular muscles are intact. Sclerae are clear. Pupils are equal, round, and react to light. She did not have any scleral hemorrhages or icterus. Her oral mucosa is moist. Tongue is midline. [place], [place] REPORT OF CONSULTATION NAME: ANTONIO ESPIANL UNIT #: [id number] ROOM: [facility] DOCTOR: RADHA VAUGHN MD BIRTHDATE: [birth year] NECK: Supple. She had no jugular distention. Carotids were full and I heard no bruits. She had no neck or supraclavicular masses. LUNGS: Respirations are unlabored. Her chest has bilateral crackles over much of the lung magana. She has no presacral edema or chest wall tenderness. CARDIOVASCULAR: Her heart has a regular rhythm. I heard no gallops. She does have a grade 1/6 systolic murmur along the left sternal border. There were no diastolic murmurs. The PMI was not displaced. She had no precordial heave, lift, or thrill. ABDOMEN: Soft. EXTREMITIES: Showed no edema. Peripheral pulses were palpable in the feet. LABORATORY DATA: Her electrocardiogram is pending. Chest x-ray does show a biventricular ICD in place with changes consistent with previous sternotomy and bypass surgery. White count is 5900, hemoglobin is 10.2. INR is 3.4. Sodium 143, potassium 3.8, BUN 32, creatinine 0.81, GFR greater than 60. Albumin is 2.7. IMPRESSION: 1. Blood culture positive for Streptococcus salivarius from 01/16/2017 when she was hospitalized for urinary tract infection. 2. History of coronary artery disease, status post 2 previous bypass surgeries, details not available. 3. History of cardiomyopathy, possibly due to tachycardia. The patient is status post atrioventricular sean ablation and does have a biventricular ICD in place. 4. History of chronic anemia. 5. Hypothyroidism, on replacement. 6. The patient carries a diagnosis of non-Hodgkin's lymphoma. Her daughter believes that this was poorly documented. She has never received chemotherapy and apparently the tumor if present is quite indolent. 7. Probable pulmonary fibrosis based on her chest x-ray and examination. PLAN: I had extensive conversations with Dr. Garcia and with the patient's daughter. Thus far, her repeat blood cultures have been sterile, but they have only been growing for less than 48 hours, and therefore, a late or slow growing organism may yet be found. If the blood cultures are positive for the same organism as found initially, then the chances of her having endocarditis are extremely high. At that point, we would have to speak to the patient and her daughter regarding our options for further care. At very least, she would require long-term antibiotic therapy. In order to sterilize her blood, we would almost certainly have to remove her ICD and the leads. This would be a very difficult endeavor because she has had an AV sean ablation and is pacemaker dependent according to her daughter. As of this time, I have not conferred with her primary phd internship in [place] and I am requesting his records. Rather than proceeding directly to a DIOGENES, I think that we should get a standard transthoracic echo and review that. We should await the results of the cultures. If they are negative, then I would not pursue this any further. However, if they are positive, we will need to discuss her options with her at length. At that point, the patient may request transfer to [place] to see her [place], [place] REPORT OF CONSULTATION NAME: ANTONIO ESPINAL UNIT #: [id number] ROOM: [facility] DOCTOR: RADHA VAUGHN MD BIRTHDATE: [birth year] regular phd internship and get his opinion regarding further steps. I thank Dr. Garcia and the hospitalist physicians for asking our advice regarding the patient's care. RADHA VAUGHN MD CM:CONSTR:REPORT OF CONSULTATION 1947 01/26/17 1553 interface
--- NOTE | ~2017-01-24 | PR ---
[place], [place] PROGRESS NOTE NAME: ANTONIO ESPINAL [facility] #: [id number] UNIT #: [id number] ROOM: 519 DOCTOR: RADHA VAUGHN MD BIRTHDATE: [birth year] DOS: 01/26/2017 CARDIOLOGY PROGRESS NOTE SUBJECTIVE: The patient was seen at her bedside today, January 26, 2017, for followup of her cardiomyopathy, biventricular ICD, and positive blood culture from a previous hospitalization. She grew Streptococcus salivarius from a culture drawn on January 16, 2017. Currently, she does not appear to be toxic, but there is a concern that she could have an indolent infection and that it could have affected her pacemaker. The patient is unable to give me much of a history mostly because she is very hard of hearing and cannot understand very well. Most communication is via white board. The patient denies chest pain or palpitations. She denies lightheadedness or syncope. She was very hypoglycemic overnight and tells me that she did not sleep well. PHYSICAL EXAMINATION: VITAL SIGNS: Today, her pulse is 60 and regular. Blood pressure is 116/50. She is afebrile. NECK: Supple. She has no jugular distention. Carotids are full. LUNGS: Respirations are unlabored. Her chest is clear. HEART: Has a regular rhythm with a grade 2/6 systolic ejection murmur along the left sternal border. No diastolic murmurs are present. ABDOMEN: Soft. EXTREMITIES: Showed no edema. I reviewed her electrocardiogram. She does show 100% ventricular pacing. The underlying rhythm appears to be atrial fibrillation. LABORATORY DATA: Blood cultures are sterile to date. White count is 5900, hemoglobin 9.2. Sedimentation rate is elevated at 78. However, the patient does have a hematologic malignancy and this could account for that finding. IMPRESSION: 1. Coronary artery disease. The patient is status post bypass on 2 occasions, the first of which was 40 years ago. 2. 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 The patient is status post placement of an ICD with reported AV sean ablation. Records have been requested. 3. Non-Hodgkin's lymphoma. The patient's daughter states that the patient has never received radiation or chemotherapy and the malignancy is felt to be very indolent. It may, however, results in immunocompromise. 4. Positive blood culture for Streptococcus salivarius. PLAN: For now, since her current blood cultures are sterile, we will obtain a [place], [place] PROGRESS NOTE NAME: ANTONIO ESPINAL [facility] #: [id number] UNIT #: [id number] ROOM: 519 DOCTOR: RODERICK RIVERA,RADHA BIRTHDATE: [birth year] transthoracic echocardiogram and review that, but we do not have any plans to do a transesophageal echocardiogram. Her age, poor nutritional status, and respiratory problems do increase the risk of a pulmonary complication from the DIOGENES and if the study is positive, removal of her pacemaker and its leads would probably be a very morbid event for the patient. She is not likely to agree to that form of therapy and would probably require long-term antibiotic care in any case. We will await the results of her final blood cultures and echo, but for now, we plan a conservative approach to her care. I have discussed this with Dr. Garcia as well as with Dr. Joya and the patient's daughter. RADHA VAUGHN MD CM:PNTRANS [id number] RADHA VAUGHN MD 01/26/172239 interface
[~2017-01-24 07:59] MED LIST changes: +BACTROBAN OINT0.9 GM NAS; +BIOFREEZE118 ML T; +DUONEB 3 MG/3 ML3 M1 INH; +NATURE'S TEARS15 M2 OU; +ZOFRAN4 MG PO
[2017-01-24 08:00] VITALS: BP 162/62
[2017-01-24] MEDS ORDERED: TYLENOL325 M1 PO (08:10)
[2017-01-24] MEDS ORDERED: ACYCLOVIR200 MG PO (08:10)
[2017-01-24] MEDS ORDERED: AMLODIPINE BES2.5 MG PO (08:10)
[2017-01-24] MEDS ORDERED: LIPITOR10 MG PO (08:11)
[2017-01-24] MEDS ORDERED: B121000 MCG/2 SC (08:11)
[2017-01-24] MEDS ORDERED: BIOFREEZE118 ML TP (08:12)
[2017-01-24] MEDS ORDERED: CALCIUM +D & M1 EACH PO (08:12)
[2017-01-24] MEDS ORDERED: CALMOSEPTINE O3.5 GM TP (08:12)
[2017-01-24] MEDS ORDERED: COLACE100 MG PO (08:13)
[2017-01-24] MEDS ORDERED: COLESTID1 GM PO ×2 (08:13→14:47)
[2017-01-24] MEDS ORDERED: COREG25 MG PO (08:13)
[2017-01-24] MEDS ORDERED: VITAMIN D50000 I3 PO (08:14)
[2017-01-24] MEDS ORDERED: DUONEB 3 MG/3 ML3 M1 INH (08:14)
[2017-01-24] MEDS ORDERED: COUMADIN3 M1 PO (08:14)
[2017-01-24] MEDS ORDERED: FOSAMAX70 M1 PO (08:15)
[2017-01-24] MEDS ORDERED: HUMALOG100 UNIT/1 SQ (08:15)
[2017-01-24] MEDS ORDERED: ISOSORBIDE30 MG PO (08:16)
[2017-01-24] MEDS ORDERED: LANTUS100 U/ML SC (08:17)
[2017-01-24] MEDS ORDERED: COZAAR50 M1 PO (08:17)
[2017-01-24] MEDS ORDERED: ASPERCREME1 EACH TP (08:17)
[2017-01-24] MEDS ORDERED: MACROBID100 M1 PO (08:18)
[2017-01-24] MEDS ORDERED: OCUVITE EYE +1 EACH PO (08:19)
[2017-01-24] MEDS ORDERED: ARTIFICIAL TEA1 EACH OP (08:19)
[2017-01-24] MEDS ORDERED: Bactroban Oint22 GM T (08:19)
[2017-01-24] MEDS ORDERED: POTASSIUM CHLO10 MEQ PO (08:20)
[2017-01-24] MEDS ORDERED: PREPARATION H CR1 OZ R (08:20)
[2017-01-24] MEDS ORDERED: Synthroid,Lev100 MCG PO (08:20)
[2017-01-24] MEDS ORDERED: TORSEMIDE20 MG PO (08:21)
[2017-01-24] MEDS ORDERED: ULTRAM50 MG PO (08:21)
[2017-01-24] MEDS ORDERED: ZANTAC 150150 MG PO (08:21)
[2017-01-24] MEDS ORDERED: ZOFRAN4 MG PO (08:22)
[2017-01-24 08:38] LABS: EOS # 0.2 10*3/uL (0.0-0.4); EOS % 5.2 % (1.0-4.0); HEMATOCRIT 28.9 % (37.0-47.0); HEMOGLOBIN 8.9 g/dl (12.0-16.0); LYMPH # 0.4 10*3/uL (1.3-4.4); LYMPH % 12.7 % (27.0-41.0); MEAN CELL VOLUME 87.3 fl (81.0-99.0); MEAN CORPUSCULAR HGB 26.9 pg (27.0-31.0); MEAN CORPUSCULAR HGB CONC 30.8 g/dl (33.0-37.0); MEAN PLATELET VOLUME 8.9 fl (9.6-12.3); MONO # 0.5 10*3/uL (0.1-1.0); MONO % 16.1 % (3.0-9.0); NEUT # 2.1 10*3/uL (2.3-7.9); NEUT % 64.8 % (47.0-73.0); PLATELET COUNT AUTOMATED 222 10*3/uL (130-400); RED BLOOD COUNT 3.31 10*6/uL (4.10-5.10); RED CELL DISTRI WIDTH 17.2 % (0-14.5); WHITE BLOOD COUNT 3.3 10*3/uL (4.8-10.8)
[2017-01-24 08:49] LABS: POTASSIUM 4.4 mmol/L (3.5-5.1)
[2017-01-24 08:49] LABS: BILIRUBIN NEGATIVE (NEGATIVE); BLOOD NEGATIVE (NEGATIVE); CLARITY SL CLOUDY (CLEAR); COLOR YELLOW (YELLOW); GLUCOSE NEGATIVE (NEGATIVE); KETONE NEGATIVE (NEGATIVE); LEUKO ESTERASE NEGATIVE (NEGATIVE); NITRITE NEGATIVE (NEGATIVE); PROTEIN NEGATIVE (NEGATIVE); UROBILINOGEN 0.2 E.U./dl (0.2-1.0)
[2017-01-24 09:00] VITALS: BP 150/70
[2017-01-24 09:00] LABS: RBC 0-2 rbc/hpf (0-2); WBC 0-2 wbc/hpf (0-5)
[2017-01-24 09:01] LABS: BACTERIA TRACE; URINE REFLEX COMMENT NO (NO)
[2017-01-24 10:30] VITALS: BP 155/62
[2017-01-24 12:00] VITALS: BP 104/40
[2017-01-24 16:00] VITALS: BP 138/46
[2017-01-24 20:29] VITALS: BP 125/51
[2017-01-25] VITALS: BP 126/42; BP 140/45
[2017-01-25 06:01] LABS: BASO % 0.2 % (0.0-1.0); EOS # 0.2 10*3/uL (0.0-0.4); EOS % 2.9 % (1.0-4.0); HEMATOCRIT 33.2 % (37.0-47.0); HEMOGLOBIN 10.2 g/dl (12.0-16.0); IG # 0.1 10*3/uL (0.0-0.1); LYMPH # 0.5 10*3/uL (1.3-4.4); LYMPH % 8.8 % (27.0-41.0); MEAN CELL VOLUME 87.4 fl (81.0-99.0); MEAN CORPUSCULAR HGB 26.8 pg (27.0-31.0); MEAN CORPUSCULAR HGB CONC 30.7 g/dl (33.0-37.0); MEAN PLATELET VOLUME 8.7 fl (9.6-12.3); MONO # 0.7 10*3/uL (0.1-1.0); MONO % 11.1 % (3.0-9.0); NEUT # 4.5 10*3/uL (2.3-7.9); NEUT % 75.1 % (47.0-73.0); PLATELET COUNT AUTOMATED 274 10*3/uL (130-400); WHITE BLOOD COUNT 5.9 10*3/uL (4.8-10.8)
[2017-01-25 06:11] LABS: ALBUMIN 2.7 gm/dl (3.1-4.5); BILIRUBIN, TOTAL 0.5 mg/dl (0.2-1.0); BUN 32 mg/dl (7-24); CARBON DIOXIDE 32 mmol/L (21-32); CHLORIDE 107 mmol/L (98-107); EST GLOM FILT AFRICAN AMERICAN > 60 ml/min; MAGNESIUM 2.1 mg/dL (1.5-2.1); POTASSIUM 3.8 mmol/L (3.5-5.1); SGOT/AST 18 IU/L (3-35); SODIUM 143 mmol/L (136-145); TOTAL PROTEIN 6.8 gm/dL (6.4-8.2)
[2017-01-25 06:16] LABS: ALKALINE PHOSPHATASE 63 U/L (45-117); SGPT/ALT 14 U/L (12-78)
[2017-01-25 06:19] LABS: GLUCOSE 25 mg/dL (65-99)
[2017-01-25 06:34] LABS: INTERNATIONAL NORM RATIO 3.4 (2.0-3.5); PROTHROMBIN TIME 38.5 SECONDS (9.0-12.4)
[2017-01-25 08:00] VITALS: BP 132/56
[2017-01-25 12:00] VITALS: BP 146/50
[2017-01-25 16:00] VITALS: BP 92/50
[2017-01-25 20:00] VITALS: BP 110/41
[2017-01-26] VITALS: BP 110/41; BP 126/42
[2017-01-26 06:05] LABS: BASO % 0.3 % (0.0-1.0); EOS # 0.2 10*3/uL (0.0-0.4); EOS % 3.7 % (1.0-4.0); HEMATOCRIT 30.3 % (37.0-47.0); HEMOGLOBIN 9.2 g/dl (12.0-16.0); IG # 0.1 10*3/uL (0.0-0.1); LYMPH # 0.5 10*3/uL (1.3-4.4); LYMPH % 9.2 % (27.0-41.0); MEAN CELL VOLUME 86.8 fl (81.0-99.0); MEAN CORPUSCULAR HGB 26.4 pg (27.0-31.0); MEAN CORPUSCULAR HGB CONC 30.4 g/dl (33.0-37.0); MONO # 0.9 10*3/uL (0.1-1.0); MONO % 14.5 % (3.0-9.0); NEUT # 4.2 10*3/uL (2.3-7.9); NEUT % 71.1 % (47.0-73.0); PLATELET COUNT AUTOMATED 308 10*3/uL (130-400); RED BLOOD COUNT 3.49 10*6/uL (4.10-5.10); WHITE BLOOD COUNT 5.9 10*3/uL (4.8-10.8)
[2017-01-26 06:17] LABS: PROTHROMBIN TIME 55.8 SECONDS (9.0-12.4)
[2017-01-26 06:25] LABS: INTERNATIONAL NORM RATIO 4.8 (2.0-3.5)
[2017-01-26 08:00] VITALS: BP 116/50
[2017-01-26 12:00] VITALS: BP 122/53
[2017-01-26] MEDS ORDERED: CEPHALEXIN500 M1 PO (13:48)
[2017-01-26 15:37] VITALS: BP 101/51
== END 2017-01-26 17:36 | disposition other institution (70) | DRG 682 ==
LOC: ED 07:59 → EDHOLD 09:30 → 5E 09:30
PROVIDERS: Emergency Medicine; Internal Medicine Hospice and Palliative Medicine
DX: N17.0 Acute kidney failure with tubular necrosis (principal); E43 Unspecified severe protein-calorie malnutrition; D68.59 Other primary thrombophilia; C85.90 Non-Hodgkin lymphoma, unspecified, unspecified site; I50.32 Chronic diastolic (congestive) heart failure; I42.9 Cardiomyopathy, unspecified; R78.81 Bacteremia; D70.8 Other neutropenia; N18.3 Chronic kidney disease, stage 3 (moderate); I48.2 Chronic atrial fibrillation; E03.9 Hypothyroidism, unspecified; M15.9 Polyosteoarthritis, unspecified; H90.5 Unspecified sensorineural hearing loss; I34.0 Nonrheumatic mitral (valve) insufficiency; I37.1 Nonrheumatic pulmonary valve insufficiency; I07.1 Rheumatic tricuspid insufficiency; E78.00 Pure hypercholesterolemia, unspecified; E55.9 Vitamin D deficiency, unspecified; I25.10 Atherosclerotic heart disease of native coronary artery without angina pectoris; D63.8 Anemia in other chronic diseases classified elsewhere; J44.9 Chronic obstructive pulmonary disease, unspecified; Z88.1 Allergy status to other antibiotic agents; Z88.0 Allergy status to penicillin; Z87.440 Personal history of urinary (tract) infections; Z88.2 Allergy status to sulfonamides; Z90.710 Acquired absence of both cervix and uterus; Z95.1 Presence of aortocoronary bypass graft; Z98.49 Cataract extraction status, unspecified eye; Z95.810 Presence of automatic (implantable) cardiac defibrillator; Z87.891 Personal history of nicotine dependence; Z80.8 Family history of malignant neoplasm of other organs or systems; Z82.49 Family history of ischemic heart disease and other diseases of the circulatory system; Z79.4 Long term (current) use of insulin; Z79.899 Other long term (current) drug therapy; Z68.22 Body mass index [BMI] 22.0-22.9, adult

== ENCOUNTER 2017-02-20 18:34 | Inpatient (IN) | payer MEDICARE, BC ==
[~2017-02-20] VITALS: Ht 152.4 cm; Wt 62.0 kg
--- NOTE | ~2017-02-20 | EKG ---
[place], [place] ELECTROCARDIOGRAM REPORT NAME: ANTONIO ESPINAL UNIT #: [id number] ROOM: 420 DOCTOR: RODERICK RIVERA,RADHA BIRTHDATE: [birth year] DOS: 02/20/2017 TIME: 19:27 p.m. The patient is in a ventricular paced rhythm with an occasional intrinsic beat, which may represent a PVC. There is marked baseline artifact which makes assessment of the atrial activity impossible. No further analysis can be done. Abnormal electrocardiogram. RADHA VAUGHN MD CM:EKGRPT:ELECTROCARDIOGRAM REPORT [id number] RADHA VAUGHN MD
[~2017-02-20 18:34] MED LIST changes: +AMLODIPINE BES2.5 MG PO; +ARTIFICIAL TEA1 EACH OP; +ASPERCREME1 EACH TP; +B121000 MCG/2 SC; +Bactroban Oint22 GM T; +CALCIUM +D & M1 EACH PO; +CALMOSEPTINE O3.5 GM TP; +CEPHALEXIN500 M1 PO; +COUMADIN3 M1 PO; +HUMALOG100 UNIT/1 SQ; +OCUVITE EYE +1 EACH PO; +POTASSIUM CHLO10 MEQ PO; +PREPARATION H CR1 OZ R; +TYLENOL325 M1 PO
[2017-02-20 18:47] VITALS: BP 112/81
[2017-02-20] MEDS ORDERED: NITRO-DUR1 EAC1 TD (19:18)
[2017-02-20] MEDS ORDERED: COUMADIN4 M2 PO (19:21)
[2017-02-20 19:28] LABS: EOS # 0.1 10*3/uL (0.0-0.4); EOS % 1.4 % (1.0-4.0); HEMATOCRIT 29.8 % (37.0-47.0); LYMPH # 0.4 10*3/uL (1.3-4.4); LYMPH % 9.9 % (27.0-41.0); MEAN CORPUSCULAR HGB 26.9 pg (27.0-31.0); MEAN CORPUSCULAR HGB CONC 30.2 g/dl (33.0-37.0); MONO # 0.5 10*3/uL (0.1-1.0); MONO % 14.9 % (3.0-9.0); NEUT # 2.7 10*3/uL (2.3-7.9); NEUT % 73.5 % (47.0-73.0); PLATELET COUNT AUTOMATED 133 10*3/uL (130-400); RED BLOOD COUNT 3.35 10*6/uL (4.10-5.10); RED CELL DISTRI WIDTH 19.4 % (0-14.5); WHITE BLOOD COUNT 3.6 10*3/uL (4.8-10.8)
[2017-02-20 19:37] LABS: INTERNATIONAL NORM RATIO 1.4 (2.0-3.5); PROTHROMBIN TIME 15.5 SECONDS (9.0-12.4)
[2017-02-20 19:45] LABS: BILIRUBIN, TOTAL 0.6 mg/dl (0.2-1.0); POTASSIUM 4.8 mmol/L (3.5-5.1); TOTAL PROTEIN 6.8 gm/dL (6.4-8.2)
[2017-02-20 20:07] VITALS: BP 159/55
[2017-02-20 20:17] LABS: BILIRUBIN NEGATIVE (NEGATIVE); BLOOD 1+ (NEGATIVE); CLARITY SL CLOUDY (CLEAR); COLOR YELLOW (YELLOW); GLUCOSE TRACE (NEGATIVE); KETONE NEGATIVE (NEGATIVE); LEUKO ESTERASE 3+ (NEGATIVE); NITRITE NEGATIVE (NEGATIVE); PROTEIN TRACE (NEGATIVE); UROBILINOGEN 0.2 E.U./dl (0.2-1.0)
[2017-02-20 20:27] LABS: BACTERIA 2+; URINE REFLEX COMMENT YES (NO); WBC 41-50 wbc/hpf (0-5)
[2017-02-20 20:42] VITALS: BP 162/57
[2017-02-20 22:05] VITALS: BP 158/68; BP 170/62
[2017-02-20 23:50] VITALS: BP 170/62
[2017-02-21 00:11] VITALS: BP 158/60
[2017-02-21 06:19] LABS: BASO % 0.3 % (0.0-1.0); EOS # 0.1 10*3/uL (0.0-0.4); EOS % 1.6 % (1.0-4.0); HEMATOCRIT 30.2 % (37.0-47.0); LYMPH # 0.5 10*3/uL (1.3-4.4); LYMPH % 12.5 % (27.0-41.0); MEAN CELL VOLUME 89.6 fl (81.0-99.0); MEAN CORPUSCULAR HGB 26.7 pg (27.0-31.0); MEAN CORPUSCULAR HGB CONC 29.8 g/dl (33.0-37.0); MEAN PLATELET VOLUME 8.9 fl (9.6-12.3); MONO # 0.7 10*3/uL (0.1-1.0); MONO % 18.3 % (3.0-9.0); NEUT # 2.5 10*3/uL (2.3-7.9); NEUT % 66.8 % (47.0-73.0); PLATELET COUNT AUTOMATED 138 10*3/uL (130-400); RED BLOOD COUNT 3.37 10*6/uL (4.10-5.10); WHITE BLOOD COUNT 3.7 10*3/uL (4.8-10.8)
[2017-02-21 06:55] LABS: ALBUMIN 3.2 gm/dl (3.1-4.5); BILIRUBIN, TOTAL 0.7 mg/dl (0.2-1.0); MAGNESIUM 1.9 mg/dL (1.5-2.1); PHOSPHOROUS 2.6 mg/dL (2.5-4.9); TOTAL PROTEIN 6.8 gm/dL (6.4-8.2)
[2017-02-21 07:03] LABS: INTERNATIONAL NORM RATIO 1.4 (2.0-3.5); PROTHROMBIN TIME 15.4 SECONDS (9.0-12.4)
[2017-02-21 08:00] VITALS: BP 154/68
[2017-02-21 12:00] VITALS: BP 168/70
[2017-02-21 16:00] VITALS: BP 159/46
[2017-02-21 20:00] VITALS: BP 144/78
[2017-02-22 00:19] VITALS: BP 140/66
[2017-02-22 06:13] LABS: BASO % 0.2 % (0.0-1.0); BUN 28 mg/dl (7-24); CARBON DIOXIDE 32 mmol/L (21-32); CHLORIDE 101 mmol/L (98-107); EOS % 0.2 % (1.0-4.0); EST GLOM FILT AFRICAN AMERICAN > 60 ml/min; GLUCOSE 93 mg/dL (65-99); HEMATOCRIT 30.5 % (37.0-47.0); LYMPH # 0.5 10*3/uL (1.3-4.4); LYMPH % 9.3 % (27.0-41.0); MEAN CELL VOLUME 89.7 fl (81.0-99.0); MEAN CORPUSCULAR HGB 26.5 pg (27.0-31.0); MEAN CORPUSCULAR HGB CONC 29.5 g/dl (33.0-37.0); MEAN PLATELET VOLUME 9.1 fl (9.6-12.3); MONO # 0.7 10*3/uL (0.1-1.0); MONO % 13.1 % (3.0-9.0); NEUT # 4.3 10*3/uL (2.3-7.9); NEUT % 76.8 % (47.0-73.0); PLATELET COUNT AUTOMATED 141 10*3/uL (130-400); POTASSIUM 3.7 mmol/L (3.5-5.1); RED CELL DISTRI WIDTH 19.1 % (0-14.5); SODIUM 140 mmol/L (136-145); WHITE BLOOD COUNT 5.6 10*3/uL (4.8-10.8)
[2017-02-22 08:00] VITALS: BP 140/60
[2017-02-22] MEDS ORDERED: ASPIRIN81 M1 PO (10:45)
== END 2017-02-22 14:20 | disposition other institution (70) | DRG 377 ==
LOC: ED 18:34 → EDHOLD 20:17 → 4E 20:17
PROVIDERS: Internal Medicine Hospice and Palliative Medicine; Physician Assistant; Student in an Organized Health Care Education/Training Program
DX: K92.2 Gastrointestinal hemorrhage, unspecified (principal); J96.01 Acute respiratory failure with hypoxia; N17.0 Acute kidney failure with tubular necrosis; E43 Unspecified severe protein-calorie malnutrition; C85.90 Non-Hodgkin lymphoma, unspecified, unspecified site; E11.22 Type 2 diabetes mellitus with diabetic chronic kidney disease; D68.59 Other primary thrombophilia; E11.65 Type 2 diabetes mellitus with hyperglycemia; N30.01 Acute cystitis with hematuria; M19.90 Unspecified osteoarthritis, unspecified site; I95.9 Hypotension, unspecified; I50.9 Heart failure, unspecified; E03.9 Hypothyroidism, unspecified; I70.90 Unspecified atherosclerosis; M48.00 Spinal stenosis, site unspecified; E78.00 Pure hypercholesterolemia, unspecified; E55.9 Vitamin D deficiency, unspecified; I08.8 Other rheumatic multiple valve diseases; I27.2 Other secondary pulmonary hypertension; H91.90 Unspecified hearing loss, unspecified ear; Z51.5 Encounter for palliative care; I48.91 Unspecified atrial fibrillation; N18.9 Chronic kidney disease, unspecified; Z66 Do not resuscitate; Z79.01 Long term (current) use of anticoagulants; Z90.49 Acquired absence of other specified parts of digestive tract; Z90.710 Acquired absence of both cervix and uterus; Z95.810 Presence of automatic (implantable) cardiac defibrillator; Z95.1 Presence of aortocoronary bypass graft; Z87.891 Personal history of nicotine dependence; Z80.0 Family history of malignant neoplasm of digestive organs; Z80.1 Family history of malignant neoplasm of trachea, bronchus and lung; Z80.8 Family history of malignant neoplasm of other organs or systems; Z88.0 Allergy status to penicillin; Z88.1 Allergy status to other antibiotic agents; Z88.2 Allergy status to sulfonamides; Z91.048 Other nonmedicinal substance allergy status; Z79.4 Long term (current) use of insulin; Z79.899 Other long term (current) drug therapy; Z68.28 Body mass index [BMI] 28.0-28.9, adult

== ENCOUNTER → 2017-04-11 | Outpatient (CLI) | payer MEDICARE, BC ==
[~2017-04-11] MED LIST changes: +COUMADIN4 M2 PO
== END | disposition home or self-care (01) ==
LOC: ORTHO 04-10 20:52
DX: S42.92XA Fracture of left shoulder girdle, part unspecified, initial encounter for closed fracture (principal); X58.XXXA Exposure to other specified factors, initial encounter; Y93.89 Activity, other specified; W19.XXXA Unspecified fall, initial encounter; Y92.89 Other specified places as the place of occurrence of the external cause; Y99.8 Other external cause status

== ENCOUNTER → 2017-05-09 | Outpatient (CLI) | payer MEDICARE, BC | END | disposition home or self-care (01) | LOC: ORTHO 03:08 | DX: S42.212D Unspecified displaced fracture of surgical neck of left humerus, subsequent encounter for fracture with routine healing (principal); M19.012 Primary osteoarthritis, left shoulder; X58.XXXD Exposure to other specified factors, subsequent encounter ==

== ENCOUNTER 2017-06-07 10:50 | Inpatient (IN) | payer MEDICARE, BC ==
[~2017-06-07] VITALS: Ht 162.5 cm; Wt 56.3 kg
[2017-06-07 10:58] VITALS: BP 122/62
[2017-06-07 11:36] LABS: BASO % 0.2 % (0.0-1.0); EOS # 0.1 10*3/uL (0.0-0.4); EOS % 1.5 % (1.0-4.0); HEMATOCRIT 32.1 % (37.0-47.0); HEMOGLOBIN 9.2 g/dl (12.0-16.0); LYMPH # 0.7 10*3/uL (1.3-4.4); LYMPH % 10.6 % (27.0-41.0); MEAN CELL VOLUME 79.9 fl (81.0-99.0); MEAN CORPUSCULAR HGB 22.9 pg (27.0-31.0); MEAN CORPUSCULAR HGB CONC 28.7 g/dl (33.0-37.0); MEAN PLATELET VOLUME 9.7 fl (9.6-12.3); MONO # 0.8 10*3/uL (0.1-1.0); MONO % 12.9 % (3.0-9.0); NEUT # 4.8 10*3/uL (2.3-7.9); PLATELET COUNT AUTOMATED 170 10*3/uL (130-400); RED BLOOD COUNT 4.02 10*6/uL (4.10-5.10); RED CELL DISTRI WIDTH 19.9 % (0-14.5); WHITE BLOOD COUNT 6.5 10*3/uL (4.8-10.8)
[2017-06-07 11:53] LABS: ALBUMIN 2.8 gm/dl (3.1-4.5); CKMB 1.4 ng/ml (0.5-3.6); CREATININE 1.61 mg/dL (0.55-1.02); POTASSIUM 4.1 mmol/L (3.5-5.1); TOTAL PROTEIN 6.8 gm/dL (6.4-8.2)
[2017-06-07 11:54] LABS: TROPONIN I 0.095 ng/ml (<0.045)
[2017-06-07 11:58] LABS: BILIRUBIN NEGATIVE (NEGATIVE); BLOOD 1+ (NEGATIVE); CLARITY SL CLOUDY (CLEAR); COLOR YELLOW (YELLOW); GLUCOSE NEGATIVE (NEGATIVE); KETONE TRACE (NEGATIVE); LEUKO ESTERASE 3+ (NEGATIVE); NITRITE POSITIVE (NEGATIVE); PH 5.5 (5.0-9.0); UROBILINOGEN 0.2 E.U./dl (0.2-1.0)
[2017-06-07 12:10] LABS: BACTERIA 3+; RBC 0-2 rbc/hpf (0-2); WBC 21-30 wbc/hpf (0-5)
[2017-06-07 12:10] LABS: THYROID STIM HORMONE (HS) 2.66 uIU/ml (0.358-4.75)
[2017-06-07 13:00] VITALS: BP 104/60
--- NOTE | 2017-06-07 13:24 | NUR ---
PT'S DAUGHTER COMES TO DESK STATING SHE BELIEVES PT IS UNCOMFORTABLE WITH THE CATH. I INFORMED HER THAT "THE MOMENT YOU WANT ME TO REMOVE THE CATHETER, I WILL". DAUGHTER RETURNED TO THE ROOM.
--- NOTE | 2017-06-07 13:51 | NUR ---
SALINE AND ROCEPHIN INFUSING AT TIME OF ADMISSION.
--- NOTE | 2017-06-07 14:02 | NUR ---
Reviewing orders for pt who has not yet been brought to room from ER. Pt has order for Dr. Em consult in computer. Called office at this time and they stated that she is currently in surgery. Called the surgery dept and spoke with Yves SMITH. Notified her of details of consult and she states she will let Dr. Em know.
--- NOTE | 2017-06-07 14:05 | NUR ---
Time: 1404 A 87 year old female admitted to 4E under services of NADINE GAXIOLA DO. Pt. arrived via stretcher from ER. Chief complaint: UTI and fall. SHELLEY JERONIMO
[2017-06-07] MEDS ORDERED: ATIVAN0.5 MG PO (14:37)
[2017-06-07] MEDS ORDERED: ATROPINE SULFATE2 M2 SL (14:39)
[2017-06-07] MEDS ORDERED: BISCOLAX10 M1 R (14:42)
[2017-06-07] MEDS ORDERED: COREG6.25 MG PO (14:47)
[2017-06-07] MEDS ORDERED: COZAAR25 M1 PO (14:48)
[2017-06-07] MEDS ORDERED: MOM30 M1 PO (14:50)
[2017-06-07] MEDS ORDERED: TORSEMIDE20 MG PO (14:53)
[2017-06-07] MEDS ORDERED: TRAMADOL HCL50 MG PO (14:54)
[2017-06-07] MEDS ORDERED: VITAMIN D34000 UNIT PO (14:55)
[2017-06-07] MEDS ORDERED: HUMALOG100 UNIT/2 SQ (14:57)
--- NOTE | 2017-06-07 15:09 | NUR ---
DR. Menendez notified of elevated troponin.
[2017-06-07 16:00] VITALS: BP 157/58
--- NOTE | 2017-06-07 18:42 | NUR ---
Pt daughter states that her mom is coughing more frequently then she was when she came into ER. States that [place] was receiving breathing tx [place]. sales order clerk paged respiratory, they stated they are in report and will come when they are finished.
[2017-06-07 20:00] VITALS: BP 160/80
[2017-06-08] VITALS: BP 172/56
[2017-06-08 06:08] LABS: BASO % 0.4 % (0.0-1.0); EOS # 0.2 10*3/uL (0.0-0.4); EOS % 4.8 % (1.0-4.0); HEMATOCRIT 30.7 % (37.0-47.0); HEMOGLOBIN 8.9 g/dl (12.0-16.0); LYMPH # 0.7 10*3/uL (1.3-4.4); MEAN CELL VOLUME 80.8 fl (81.0-99.0); MEAN CORPUSCULAR HGB 23.4 pg (27.0-31.0); MEAN PLATELET VOLUME 9.3 fl (9.6-12.3); MONO # 0.7 10*3/uL (0.1-1.0); NEUT # 3.2 10*3/uL (2.3-7.9); NEUT % 66.4 % (47.0-73.0); PLATELET COUNT AUTOMATED 160 10*3/uL (130-400); WHITE BLOOD COUNT 4.8 10*3/uL (4.8-10.8)
[2017-06-08 06:38] LABS: INTERNATIONAL NORM RATIO 1.2 (2.0-3.5)
[2017-06-08 06:41] LABS: ALBUMIN 2.6 gm/dl (3.1-4.5); MAGNESIUM 1.6 mg/dL (1.5-2.1); TOTAL PROTEIN 6.3 gm/dL (6.4-8.2)
[2017-06-08 06:47] LABS: CREATININE 1.45 mg/dL (0.55-1.02); PHOSPHOROUS 3.4 mg/dL (2.5-4.9); THYROID STIM HORMONE (HS) 2.13 uIU/ml (0.358-4.75)
[2017-06-08 07:40] LABS: VITAMIN D, 25-HYDROXY 42.8 ng/mL (30-100)
--- NOTE | 2017-06-08 07:47 | NUR ---
Rested quietly through the night. No s/s of pain noted or voiced. Resp easy amd regular. Refused Synthroid this morning, wrote name of pill on board-shook head no and stated no in very soft whisper. Will continue to monitor.
[2017-06-08 08:00] VITALS: BP 188/64
--- NOTE | 2017-06-08 08:06 | NUR ---
Shift chart check completed.
--- NOTE | 2017-06-08 09:42 | NUR ---
Patient is a resident of the [place] [facility].
--- NOTE | 2017-06-08 10:31 | NUR ---
ANTONIO ESPINAL Dipti [id number] Please refer to the physician's history and physical for past medical history, comorbid conditions, and allergies. Diagnosis: UTI Chucho Score: 14,MODERATE RISK WOUND DESCRIPTIONS: Location of the wound: coccyx Type of wound: DTI Size: 12.0cm x 4.2cm x <0.1cm Tunneling: none Undermining: none Sinus Tract: none Presence of Exudate: none Amount: None Color: dark red Odor: None Periwound Skin Appearance: Normal Wound edges: closed Pain (associated with wound): none at time of assessment How does patient state this happened? pt unable to state how this happened Surface the patient is resting on: Isoflex SKIN PREVENTION RECOMMENDATION: 1. Pressure redistribution support surface as appropriate 2. Elevate heels 3. Remove boots/TEDS every shift and reapply 4. Head of bed 30 degrees as tolerated 5. Assess nutrition and hydration 6. Manage moisture 7. Avoid the use of containment devices while in bed 8. Use absorptive products on surfaces limit layers of linens on bed 9. Turn and reposition every 1-2 hours in bed and every 1 hour in chair as tolerated 10. Weight shifts every 15 minutes while up in chair 11. Offloading with pillows or device to keep heels elevated off bed 12. Monitor skin at least every shift 13. Inspect under medical devices twice a day WOUND TREATMENT RECOMMENDATIONS: DTI guideline Sureprep cover with optiforam sacral gentle.
--- NOTE | 2017-06-08 11:35 | NUR ---
PHYSICAL THERAPY PAtient respectfully requests no PT this date. thank you for this referral. shai Rodas,PT
[2017-06-08 12:00] VITALS: BP 160/74
[2017-06-08 16:00] VITALS: BP 161/54
[2017-06-08 20:00] VITALS: BP 161/77
[2017-06-09] VITALS: BP 185/60
[2017-06-09 00:15] VITALS: BP 166/62
--- NOTE | 2017-06-09 02:37 | NUR ---
PT COL AND CLAMMY ON ASSESSMENT, BS PER GULCOMETER WAS 50. PT RESPONDING TO VERBAL STIMULI BUT UNABLE TO DRINK OR EAT, I AMPULE OF DEXTROSE GIVEN PER ORDER, BS AT THIS TIME IS 155. PT AWAKE ALERT, NO COMPLAINTS AT THIS TIME. SNACK OFFFERED AND REFUSED NOTIFIED
--- NOTE | 2017-06-09 05:03 | NUR ---
24 HR chart check completed.
[2017-06-09 06:21] LABS: BASO % 0.2 % (0.0-1.0); EOS # 0.1 10*3/uL (0.0-0.4); EOS % 1.5 % (1.0-4.0); HEMATOCRIT 29.8 % (37.0-47.0); HEMOGLOBIN 8.6 g/dl (12.0-16.0); LYMPH # 0.5 10*3/uL (1.3-4.4); LYMPH % 8.3 % (27.0-41.0); MEAN CELL VOLUME 80.1 fl (81.0-99.0); MEAN CORPUSCULAR HGB 23.1 pg (27.0-31.0); MEAN CORPUSCULAR HGB CONC 28.9 g/dl (33.0-37.0); MEAN PLATELET VOLUME 9.5 fl (9.6-12.3); MONO # 0.6 10*3/uL (0.1-1.0); MONO % 10.8 % (3.0-9.0); NEUT # 4.6 10*3/uL (2.3-7.9); NEUT % 78.5 % (47.0-73.0); PLATELET COUNT AUTOMATED 167 10*3/uL (130-400); RED BLOOD COUNT 3.72 10*6/uL (4.10-5.10); RED CELL DISTRI WIDTH 19.9 % (0-14.5); WHITE BLOOD COUNT 5.8 10*3/uL (4.8-10.8)
--- NOTE | 2017-06-09 06:27 | NUR ---
NOTIFIED OF 4LB WEIGHT GAIN, PT IN RESTING IN BED WITH EYES CLOSED, LUNG DIMINISHED. NOT S&S OF DISTRESS NOTED
[2017-06-09 06:48] LABS: CREATININE 1.14 mg/dL (0.55-1.02); POTASSIUM 3.6 mmol/L (3.5-5.1)
[2017-06-09 08:00] VITALS: BP 116/64
[2017-06-09 12:00] VITALS: BP 119/75
[2017-06-09] MEDS ORDERED: ULTRAM50 MG PO (13:46)
[2017-06-09] MEDS ORDERED: CEFUROXIME AXE250 MG PO (13:46)
[2017-06-09] MEDS ORDERED: AMLODIPINE BESYL5 MG PO (13:46)
[2017-06-09] MEDS ORDERED: ATIVAN0.5 MG PO (13:46)
--- NOTE | 2017-06-09 14:30 | NUR ---
NURSE TO NURSE CALLED TO [facility]. DESHAWN WAS UPDATED ON PATIENT CONDITION, ON PATIENT CARE, AND NEW ORDERS PLACED. NO CONCERNS FROM THE FACILITY.
--- NOTE | 2017-06-09 14:36 | NUR ---
PATIENT FAMILY REFUSED DC PICTURES OF PATIENTS COCCYX AND WOUND AREA.
--- NOTE | 2017-06-09 15:14 | NUR ---
[facility] CALLED AND NOTIFIED OF PT DC. HOSPICE HAS SET UP TRANSPORT WHICH WILL BE HERE WITHIN THE HOUR. THE PATIENTS IV AND CATHETER HAVE BEEN REMOVED. NO CONCERNS AT THIS TIME WITH PATIENT OR FAMILY.
[2017-06-09 16:00] VITALS: BP 132/53
== END 2017-06-09 15:14 | disposition hospice, home (50) | DRG 682 ==
LOC: ED 10:50 → EDHOLD 13:11 → 4E 13:11
PROVIDERS: Internal Medicine; Student in an Organized Health Care Education/Training Program; ADMIT Internal Medicine
DX: N17.0 Acute kidney failure with tubular necrosis (principal); E43 Unspecified severe protein-calorie malnutrition; I42.0 Dilated cardiomyopathy; E87.8 Other disorders of electrolyte and fluid balance, not elsewhere classified; I50.32 Chronic diastolic (congestive) heart failure; H90.3 Sensorineural hearing loss, bilateral; I48.2 Chronic atrial fibrillation; E11.22 Type 2 diabetes mellitus with diabetic chronic kidney disease; I13.0 Hypertensive heart and chronic kidney disease with heart failure and stage 1 through stage 4 chronic kidney disease, or unspecified chronic kidney disease; N39.0 Urinary tract infection, site not specified; S42.302A Unspecified fracture of shaft of humerus, left arm, initial encounter for closed fracture; D50.9 Iron deficiency anemia, unspecified; R74.8 Abnormal levels of other serum enzymes; M19.90 Unspecified osteoarthritis, unspecified site; E11.65 Type 2 diabetes mellitus with hyperglycemia; G47.30 Sleep apnea, unspecified; E78.5 Hyperlipidemia, unspecified; K21.9 Gastro-esophageal reflux disease without esophagitis; F32.9 Major depressive disorder, single episode, unspecified; E78.00 Pure hypercholesterolemia, unspecified; N18.9 Chronic kidney disease, unspecified; E11.51 Type 2 diabetes mellitus with diabetic peripheral angiopathy without gangrene; I27.2 Other secondary pulmonary hypertension; E03.9 Hypothyroidism, unspecified; W05.0XXA Fall from non-moving wheelchair, initial encounter; B96.1 Klebsiella pneumoniae [K. pneumoniae] as the cause of diseases classified elsewhere; S70.01XA Contusion of right hip, initial encounter; Z66 Do not resuscitate; Z51.5 Encounter for palliative care; Z88.1 Allergy status to other antibiotic agents; Z88.0 Allergy status to penicillin; Z88.2 Allergy status to sulfonamides; Z87.440 Personal history of urinary (tract) infections; Z90.49 Acquired absence of other specified parts of digestive tract; Z95.810 Presence of automatic (implantable) cardiac defibrillator; Z68.20 Body mass index [BMI] 20.0-20.9, adult; Z95.1 Presence of aortocoronary bypass graft; Z98.49 Cataract extraction status, unspecified eye; Z87.891 Personal history of nicotine dependence; Z79.4 Long term (current) use of insulin; Z79.899 Other long term (current) drug therapy; Z82.49 Family history of ischemic heart disease and other diseases of the circulatory system; Z80.1 Family history of malignant neoplasm of trachea, bronchus and lung; Z80.8 Family history of malignant neoplasm of other organs or systems; Z91.81 History of falling; Y93.89 Activity, other specified; Y92.128 Other place in nursing home as the place of occurrence of the external cause; Y99.8 Other external cause status

== ENCOUNTER → 2017-06-27 | Outpatient (CLI) | payer MEDICARE, BC ==
[~2017-06-27] MED LIST changes: +ATIVAN0.5 MG PO; +ATROPINE SULFATE2 M2 SL; +BISCOLAX10 M1 R; +CEFUROXIME AXE250 MG PO; +COREG6.25 MG PO; +COZAAR25 M1 PO; +HUMALOG100 UNIT/2 SQ; +MOM30 M1 PO; +VITAMIN D34000 UNIT PO
== END | disposition home or self-care (01) ==
LOC: ORTHO 02:18
DX: S42.212D Unspecified displaced fracture of surgical neck of left humerus, subsequent encounter for fracture with routine healing (principal); S72.092D Other fracture of head and neck of left femur, subsequent encounter for closed fracture with routine healing; M19.012 Primary osteoarthritis, left shoulder; M16.12 Unilateral primary osteoarthritis, left hip; M81.8 Other osteoporosis without current pathological fracture; X58.XXXD Exposure to other specified factors, subsequent encounter